=== PATIENT | female | born 1990 | race Caucasian/White ===

== ENCOUNTER 2022-02-19 23:07 | Emergency (ER) | payer SELFPAY ==
[~2022-02-19] VITALS: Ht 170.2 cm; Wt 78.0 kg
[2022-02-20 00:18] VITALS: BP 109/51
== END 2022-02-20 01:21 | disposition home or self-care (01) ==
LOC: ER 23:28
DX: T51.0X1A Toxic effect of ethanol, accidental (unintentional), initial encounter (principal); Y92.89 Other specified places as the place of occurrence of the external cause; R11.2 Nausea with vomiting, unspecified
CPT/HCPCS: 99283